=== PATIENT | male | born 1975 | race Caucasian/White ===

== ENCOUNTER 2023-12-03 07:35 | Emergency (ER) | payer OTHER, SELFPAY ==
[2023-12-03 07:40] VITALS: BP 136/75
--- NOTE | 2023-12-03 08:38 | ED.GENMED ---
History of Present Illness
General
Chief Complaint: Musculo-Skeletal Complaint
Source: patient
Time Seen by Provider: 12/03/23 07:44
Travel History
Have you had any contact with someone who has COVID-19?: No
Do you have any symptoms of coronavirus? Fever > 100 degrees, chills, cough, shortness of breath, sore throat, loss of taste or smell, muscle aches, or headache?: No
History of Present Illness
History of Present Illness:
48-year-old female presenting to the emergency department for evaluation of atraumatic right knee pain. Patient states that she was at a wedding on Sunday night and dancing and shortly after started to feel some pain along the medial aspect of the
right knee which has persisted since. She notes some difficulty ambulating secondary to the pain. Denies any fevers, previous history of injury or surgery. No other concerns. Of note, patient states that she is an avid runner. No other concerns.
Past History
Past History
ED Past Medical History: Asthma
ED Past Surgical History:
Social History
Tobacco: Non-smoker
Alcohol: None
Drug: None
Personal:
Living: with family
Employment: Employed
Review of Systems
Review of Systems
All Other Systems: ROS reviewed and negative except as documented in HPI and ROS
Phy Exam
Physical Exam
Physical Exam:
GENERAL: Alert , in no apparent distress
EYE: conjunctiva clear
Head: Normocephalic atraumatic
NECK: Supple,
ENT: mmm.
LUNGS: no acute respiratory distress
NEUROLOGICAL: Alert and oriented
SKIN: Warm and dry, skin intact.
MUSCULOSKELETAL: Right knee: Mild soft tissue swelling medially, no joint effusion, mild tenderness along the medial aspect. Patient allows for full active and passive range of motion with no crepitus. There is no overlying erythema or increased
warmth. No calf tenderness or edema. Extremities otherwise warm and well-perfused and neurovascularly intact.
PSYCH: Normal and appropriate interaction.
Scores
Heart Failure Risk
Heart Failure Risk Score: Not Applicable
Heart Score for Chest Pain Patients
STEMI patient?: Not applicable
Withdrawal Assessment of Alcohol
Withdrawal Assessment Completed?: Not applicable
Course
Orders/Labs/Results
Orders:
Orders
12/03/23 07:44
Knee, Right 4 or More Views [CR Knee- Right 4 Or More View*] Urgent
Comment:
Reason For Exam: pain
Vital Signs
Initial and Last Documented VS:
Initial Vital Signs
Temp Pulse Resp BP Pulse Ox
98.4 F 64 18 136/75 100
12/03/23 07:40 12/03/23 07:40 12/03/23 07:40 12/03/23 07:40 12/03/23 07:40
Last Documented Vital Signs
Temp Pulse Resp BP Pulse Ox
98.4 F 64 18 136/75 100
12/03/23 07:40 12/03/23 07:40 12/03/23 07:40 12/03/23 07:40 12/03/23 07:40
MDM/Problems Addressed
Differential Diagnosis Includes:
Ligamentous injury, meniscal injury, joint effusion, less concern for fracture, osteoarthritis
MDM/Problems Addressed:
48-year-old female presenting to the emergency department for evaluation of right-sided knee pain since Sunday, denies any injury. Tenderness is mostly medial raising possibility for MCL injury or meniscal injury. Patient does allow for full range
of motion but does have some discomfort while doing so. Will check an x-ray although doubt any fracture. Anticipate outpatient management NSAIDs/Tylenol, ice and elevation, compression. Will provide with orthopedic follow-up information.
*Radiology
Radiology exam reviewed: preliminary read by ED provider
*Pulse Oximetry
Patient hypoxic: no
*Critical Care Note
Total Time (30-74mins, 75-104mins- exclusive of procedures): Not Applicable
Patient Management
Escalation/DeEscalation of care consider admission/obs:
Patient with unremarkable knee x-ray. Information for orthopedist was provided. Stable for discharge home.
ED Attending Note
-
Portions of this chart may have been created with voice recognition software.� Occasional wrong word or��sound alike� substitutions may have occurred due to the inherent limitations of voice recognition software.
Discharge Plan
Departure
Patient Disposition: Home (Routine Discharge)
Date of Disposition: 12/03/23
Time of Disposition: 09:09
Patient with high blood pressure during this ER visit?: No
Discharge Problem:
Right knee pain
Instructions: Knee Pain (DC)
Referrals:
UNKNOWN - PT DOES,NOT KNOW [Family Provider] -
Sav Burk MD [Active] - (Orthopedist)
Interventions
Interventions:
*Risk Screen - Suicide Last Done: 12/03/23 07:40
*General Assessment Last Done: 12/03/23 07:40
*Neglect/Abuse Screening Last Done: 12/03/23 07:40
*ED COVID-19 Vaccine History Last Done: 12/03/23 07:40
*Nursing Disposition Last Done: 12/03/23 09:15
ED-Musculoskeletal Assessment Last Done: 12/03/23 09:13
Discharge Date and Time
Discharge Date/Time: 12/03/23 09:17
Print Language: ALB[place]
== END 2023-12-03 09:17 | disposition home or self-care (01) ==
LOC: EMR 07:35
PROVIDERS: EMERGENCY PHYSICIAN Student in an Organized Health Care Education/Training Program
DX: M25.561 Pain in right knee (principal); J45.909 Unspecified asthma, uncomplicated
CPT/HCPCS: 99283; 73564